=== PATIENT | male | born 1930 | race Native Hawaiian/Other Pacific Islander ===

== ENCOUNTER 2020-09-25 15:30 | Emergency (ER) | payer OTHER ==
[~2020-09-25] VITALS: Ht 182.9 cm; Wt 80.7 kg
[2020-09-25 15:48] LABS: PLATELET COUNT 611 K/uL (142-355)
[2020-09-25 15:57] LABS: POTASSIUM 4.3 mmol/L (3.6-5.2); SODIUM 133 mmol/L (136-145)
[2020-09-25 23:40] VITALS: BP 140/74; TEMP 97.3
== END 2020-09-25 23:40 | disposition short-term general hospital (02) ==
LOC: ED 15:30
PROVIDERS: Emergency Medicine Emergency Medical Services
DX: R07.89 Other chest pain (principal); R55 Syncope and collapse; S51.812A Laceration without foreign body of left forearm, initial encounter; Z03.818 Encounter for observation for suspected exposure to other biological agents ruled out; W01.198A Fall on same level from slipping, tripping and stumbling with subsequent striking against other object, initial encounter; Y92.098 Other place in other non-institutional residence as the place of occurrence of the external cause
CPT/HCPCS: 36415; 80053; 81000; 83735; 84484; 85027; 87502; 87635; 93005; 96360; 96375; 99284; J1815; U0003

== ENCOUNTER 2021-06-27 18:08 | Inpatient (IN) | payer OTHER ==
[~2021-06-27] VITALS: Ht 185.4 cm; Wt 80.4 kg
[2021-06-27 18:20] VITALS: BP 97/61; TEMP 98.6
[2021-06-27 19:05] LABS: PLATELET COUNT 534 K/uL (142-355)
[2021-06-27 19:14] LABS: POTASSIUM 4.6 mmol/L (3.6-5.2); SODIUM 137 mmol/L (136-145)
[2021-06-27] MEDS ORDERED: metoprolol tartrate PO (20:50)
[2021-06-27 22:20] VITALS: BP 138/63; TEMP 98.2
[2021-06-27 23:36] VITALS: BP 138/63; TEMP 98.2; Ht 185.4 cm; Wt 80.4 kg
[2021-06-28 02:20] VITALS: BP 151/48; TEMP 98.7
[2021-06-28 10:20] VITALS: BP 140/65; TEMP 98.2
[2021-06-28 14:20] VITALS: BP 160/70; TEMP 98.2
[2021-06-28 20:29] VITALS: BP 113/81; TEMP 98.1
[2021-06-29] VITALS (7 sets, daily range): BP systolic 121–144; BP diastolic 52–70; TEMP 97.8–98.6
[2021-06-29 05:10] LABS: PLATELET COUNT 569 K/uL (142-355)
[2021-06-29 06:14] LABS: POTASSIUM 3.9 mmol/L (3.6-5.2)
[2021-06-30 04:00] VITALS: BP 131/77; TEMP 98.3
[2021-06-30 06:02] LABS: PLATELET COUNT 540 K/uL (142-355)
[2021-06-30 06:11] LABS: POTASSIUM 4.1 mmol/L (3.6-5.2)
[2021-06-30 08:00] VITALS: BP 118/61; TEMP 97.9
[2021-06-30 12:00] VITALS: BP 129/69; TEMP 98.2
[2021-06-30 16:00] VITALS: BP 156/62; TEMP 98.2
[2021-06-30 20:00] VITALS: BP 154/65; TEMP 98.3
[2021-07-01 00:26] VITALS: BP 111/48; TEMP 97.7
[2021-07-01 04:00] VITALS: BP 125/44; TEMP 97.7
[2021-07-01 07:39] LABS: POTASSIUM 3.5 mmol/L (3.6-5.2)
[2021-07-01 08:00] VITALS: BP 161/71; TEMP 97.8
[2021-07-01 08:12] LABS: PLATELET COUNT 645 K/uL (142-355)
== END 2021-07-01 20:10 | disposition home or self-care (01) | DRG 195 ==
LOC: ED 18:08 → MED/SURG 20:31
PROVIDERS: ADMIT Emergency Medicine Emergency Medical Services; ATTEND Internal Medicine Endocrinology, Diabetes & Metabolism
DX: J18.8 Other pneumonia, unspecified organism (principal); K22.2 Esophageal obstruction; E11.9 Type 2 diabetes mellitus without complications; I10 Essential (primary) hypertension; Z91.81 History of falling; R13.19 Other dysphagia; N40.0 Benign prostatic hyperplasia without lower urinary tract symptoms; I95.89 Other hypotension; H91.8X9 Other specified hearing loss, unspecified ear; G89.4 Chronic pain syndrome; Z86.73 Personal history of transient ischemic attack (TIA), and cerebral infarction without residual deficits
CPT/HCPCS: 36415; 80048; 80053; 81000; 82550; 84484; 85027; 86140; 87635; 93005; 96360; 96375; 99284; J1020; J1815; J1956; J2920; J2930; U0003

== ENCOUNTER 2021-07-04 09:56 | Emergency (ER) | payer OTHER ==
[~2021-07-04] VITALS: Ht 185.4 cm; Wt 80.3 kg
[2021-07-04 09:56] VITALS: TEMP 97.9
[~2021-07-04 09:56] MED LIST: metoprolol tartrate PO
[2021-07-04 10:21] LABS: PLATELET COUNT 579 K/uL (142-355)
[2021-07-04 10:33] LABS: POTASSIUM 4.9 mmol/L (3.6-5.2); SODIUM 133 mmol/L (136-145)
[2021-07-04 10:39] LABS: PARTIAL THROMBOPLASTIN TIME 23.2 SECONDS (24.5-33.6)
[2021-07-04 12:05] VITALS: BP 122/85
[2021-07-05] MEDS ORDERED: DEXAMETHASON4 MG PO (00:24)
[2021-07-05] MEDS ORDERED: TAMS0.4C PO (00:25)
[2021-07-05] MEDS ORDERED: EQL ASPIRIN325 M1 PO (00:26)
[2021-07-05] MEDS ORDERED: LEVOFLOXACIN500 MG PO (00:28)
[2021-07-05] MEDS ORDERED: LISI10TA11 PO (00:29)
== END 2021-07-04 12:05 | disposition home or self-care (01) ==
LOC: ED 09:56
PROVIDERS: Hospitalist
DX: E86.0 Dehydration (principal); M54.50 Low back pain, unspecified; G89.29 Other chronic pain; M47.896 Other spondylosis, lumbar region; K40.20 Bilateral inguinal hernia, without obstruction or gangrene, not specified as recurrent; W18.39XA Other fall on same level, initial encounter; Y92.098 Other place in other non-institutional residence as the place of occurrence of the external cause; Z79.899 Other long term (current) drug therapy; Z51.81 Encounter for therapeutic drug level monitoring
CPT/HCPCS: 80053; 80320; 82550; 83880; 84484; 85007; 85027; 85610; 85730; 93005; 96360; 96365; 96375; 99284; J0696; J1885; J2930

== ENCOUNTER 2021-07-04 13:42 | Inpatient (IN) | payer OTHER ==
[~2021-07-04] VITALS: Ht 185.4 cm; Wt 82.7 kg
[2021-07-04 13:43] VITALS: BP 148/84; TEMP 98.2
[2021-07-04 16:09] VITALS: BP 153/78; TEMP 97.3; Ht 185.4 cm; Wt 82.7 kg
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
--- NOTE | 2021-07-04 17:08 | NUR ---
i have s/w the [facility] [phone] at patients request for short or terminal block assembler placement and/or hospice. I have faxed them at [phone]. He also stated his diesel instructor and chief deacon-Lc Salcedo is coming to make a window visit and he wants to sign over to his episcopalian his belongings on a living will. i have notified his nurse and Dr. Esquivel.
[2021-07-04 20:00] VITALS: BP 135/51; TEMP 97.8
[2021-07-05] VITALS: BP 116/52; TEMP 97.6
[2021-07-05] MEDS ORDERED: DEXAMETHASON4 MG PO (00:24)
[2021-07-05] MEDS ORDERED: TAMS0.4C PO (00:25)
[2021-07-05] MEDS ORDERED: EQL ASPIRIN325 M1 PO (00:26)
[2021-07-05] MEDS ORDERED: LEVOFLOXACIN500 MG PO (00:28)
[2021-07-05] MEDS ORDERED: LISI10TA11 PO (00:29)
[2021-07-05 04:00] VITALS: BP 193/82; TEMP 97.8
[2021-07-05 08:00] VITALS: BP 149/58; TEMP 97.8
--- NOTE | 2021-07-05 08:50 | NUR ---
PT REQUESTING TO MOVE FROM BED TO CHAIR BY WINDOW, PT STOOD FROM BED WITH X2 EXT ASSISTANCE, PT WALKED TO CHAIR WITH LIMITED ASSISTANCE X1, NAD NOTED, NONLABORED BREATHING, PT TOLERATED WELL, NO FURTHER NEEDS AT THIS TIME, WILL CONTINUE TO MONITOR, CALL LIGHT WITHIN REACH
[2021-07-05 10:17] LABS: PLATELET COUNT 573 K/uL (142-355)
[2021-07-05 10:24] LABS: POTASSIUM 4.8 mmol/L (3.6-5.2)
[2021-07-05 12:00] VITALS: BP 177/80; TEMP 97.3
[2021-07-05 16:00] VITALS: BP 157/65; TEMP 97.8
[2021-07-05 20:00] VITALS: BP 119/82; TEMP 97.5
[2021-07-06 00:20] VITALS: BP 115/79; TEMP 97.6
[2021-07-06 04:28] VITALS: BP 141/49; TEMP 97.5
[2021-07-06 05:16] LABS: PLATELET COUNT 568 K/uL (142-355)
[2021-07-06 05:27] LABS: POTASSIUM 4.4 mmol/L (3.6-5.2)
[2021-07-06 08:00] VITALS: BP 148/64; TEMP 97.6
--- NOTE | 2021-07-06 08:35 | NUR ---
IN ROOM TO ASSIST PT TO BSC, LIMITED ASSISTANCE NEEDED, PT VOIDED IN BSC AND SMALL AMOUNT OF FORMED STOOL NOTED. PT ASSISTED BACK TO BED, CALL LIGHT IN REACH, INSTRUCTED PT TO USE CALL LIGHT IF BSC NEEDED.
--- NOTE | 2021-07-06 09:00 | NUR ---
IN PT ROOM FOR AM MEDICATION PASS AND ASSESSMENT, PT SITTING ON SIDE OF BED EATING BREAKFAST. PT STATES HE HAS DIFFICULTY SWALLOWING, PO MEDICATIONS TAKEN WITHOUT DIFFICULTY, OBSERVED PT EATING BREAKFAST CONSISTING OF GRITS AND EGGS WITHOUT DIFFICULTY. NS INFUSING AT 75 ML/HR TO 20 GAUGE IN LEFT WRIST, NO REDNESS OR SWELLING AT IV SITE NOTED AT THIS TIME. PT REFUSES TO WEAR TELEMETRY. LIMITED ASSISTANCE NEEDED TO BSC, PT INSTRUCTED TO USE CALL LIGHT IF BSC NEEDED. DENIES ANY NEEDS AT THIS TIME. CALL LIGHT IN REACH, WILL CONTINUE TO MONITOR.
--- NOTE | 2021-07-06 09:45 | NUR ---
IN ROOM TO ASSIST PT TO BSC, LIMITED ASSISTANCE NEEDED. PT VOIDED IN BSC AND LARGE AMOUNT OF FORMED STOOL NOTED. ASSISTED PT BACK TO BED, PT POSITIONED SELF ON LEFT SIDE. DENIES ANY NEEDS AT THIS TIME. CALL LIGHT IN REACH.
--- NOTE | 2021-07-06 10:35 | NUR ---
IN ROOM TO ASSIST PT TO BSC, LIMITED ASSISTANCE NEEDED, WITH ONE PERSON ASSIST. PT VOIDED IN BSC AND SMALL AMOUNT OF FORMED STOOL NOTED. ASSISTED PT BACK TO BED. PT DENIES ANY ABD PAIN OR TENDERNESS. CALL LIGHT IN REACH.
[2021-07-06 12:00] VITALS: BP 131/62; TEMP 97.9
--- NOTE | 2021-07-06 13:15 | NUR ---
IN ROOM TO ASSIST PT TO BSC, PT CAN PULL SELF TO STANDING WITH MINIMAL ASSISTANCE FROM STAFF. PT VOIDED IN BSC AND SMALL AMOUNT OF FORMED STOOL NOTED. PT ASSISTED BACK TO BED, POSITIONED SELF ON LEFT SIDE. CALL LIGHT IN REACH. NOTIFIED OF MULTIPLE BM, NO NEW ORDERS AT THIS TIME.
[2021-07-06 16:00] VITALS: BP 175/77; TEMP 97.9
--- NOTE | 2021-07-06 17:00 | NUR ---
PT BP 175/77 HR 70, HYDRALAZINE HCL 10 MG IVP PRN GIVEN FOR SYSTOLIC BP > 150. WILL RECHECK BP. PT DENIES ANY NEEDS AT THIS TIME. CALL LIGHT IN REACH.
--- NOTE | 2021-07-06 17:45 | NUR ---
PT BP 135/59 HR 88 AFTER ADMINISTRATION OF HYDRALAZINE 10MG IV, NAD NOTED, NONLABORED BREATHING, NO FURTHER NEEDS AT THIS TIME, WILL CONTINUE TO MONITOR
[2021-07-06 20:00] VITALS: BP 116/62; TEMP 97.2
[2021-07-07] VITALS: BP 144/67; TEMP 97.2
[2021-07-07 04:00] VITALS: BP 107/41; TEMP 97.6
[2021-07-07 05:19] LABS: PLATELET COUNT 524 K/uL (142-355)
[2021-07-07 08:00] VITALS: BP 127/58; TEMP 97.4
[2021-07-07 12:00] VITALS: BP 115/84; TEMP 98.33
--- NOTE | 2021-07-07 16:14 | NUR ---
DISCHARGED HOME WITH SON VIA WC
--- NOTE | 2021-07-07 16:28 | NUR ---
DC ORDERS REC AND CARRIED OUT. IV SITE TO LEFT ARM DC'D WITH TIP INTACT. REPORT CALLED TO DOROTHY IN [place]. PT TO BE DC'D VIA TRANSPORT TODAY WHEN AVAILABLE.
--- NOTE | 2021-07-07 16:47 | NUR ---
i have called non emergent transport [phone] for transport to the [facility] [place] [phone]. pt requested that i call his road supervisor Lc Salcedo from [facility] [phone] to let him know where he was going and to see if he could get his truck keys from his landlord Mr. Angel Patel [phone]. I left a voicemail for Mr. Patel and i spoke with Mr. Lc Salcedo. Mr. Salcedo stated he will see about Mr. Baird's keys. Mr. Salcedo stated he also knew that pt had left [facility] before AMA and that he felt that he needed rehab to be safe. He stated that if pt got better and needed to, that he would even let him move into his home to oversee his care. He stated that pt asked him to be his POA and that he will do his best to assure that he is taken care of.
--- NOTE | 2021-07-07 16:54 | NUR ---
i have rescheduled pts audiology appt in [place] at the [facility] with Dr. Escobar [phone] ext [phone] for 07/29/21 @ 2pm and pt stated Lc Matias will take him to the appt. I notified Lc Salcedo and he agreed he can take him to the appt.
--- NOTE | 2021-07-07 17:47 | NUR ---
REPORT CALLED TO DOROT[facility] IN [place] MULT[facility]LE TIM[facility] TODAY. EXPECTING TRANSPORT TO ARRIVE SOON.
== END 2021-07-07 20:00 | DRG 195 ==
LOC: ED 13:42 → MED/SURG 14:30 → UNDODEPER 07-07 15:24 → MED/SURG 07-07 20:00
PROVIDERS: ADMIT Hospitalist; ATTEND Internal Medicine
DX: J18.8 Other pneumonia, unspecified organism (principal); R53.1 Weakness; R62.7 Adult failure to thrive; Z91.81 History of falling; R26.89 Other abnormalities of gait and mobility; G89.4 Chronic pain syndrome; I95.89 Other hypotension; K22.2 Esophageal obstruction; R13.19 Other dysphagia; N40.0 Benign prostatic hyperplasia without lower urinary tract symptoms; H91.8X9 Other specified hearing loss, unspecified ear; E11.22 Type 2 diabetes mellitus with diabetic chronic kidney disease; I12.9 Hypertensive chronic kidney disease with stage 1 through stage 4 chronic kidney disease, or unspecified chronic kidney disease; N18.30 Chronic kidney disease, stage 3 unspecified; E86.0 Dehydration
CPT/HCPCS: 36415; 80048; 85027; 87635; 94760; 99284; J0360; J1815; U0003